=== PATIENT | male | born 1965 | race Caucasian/White ===

== ENCOUNTER 2019-12-06 01:16 | Outpatient (CLI) | payer OTHER, BC, SELFPAY ==
[2019-12-06 19:05] LABS: SARS-CoV-2 RNA PCR Negative
== END 2019-12-06 01:17 | disposition home or self-care (01) ==
LOC: ANHCOVIDDT 01:16
PROVIDERS: Visit Provider Internal Medicine Gastroenterology
DX: Z01.812 Encounter for preprocedural laboratory examination (principal); Z20.828 Contact with and (suspected) exposure to other viral communicable diseases
CPT/HCPCS: 87635; C9803; U0003

== ENCOUNTER 2019-12-08 01:00 | Day surgery (SDC) | payer OTHER, BC, SELFPAY ==
[2019-11-30 15:52] VITALS: BMI 50.0
--- NOTE | 2019-12-07 08:50 | WPDANESEPPF ---
Anes - Initial Pre Proc Eval Procedure: Operation Date: 12/08/19 08:30 Proposed Procedures p Screening Colonoscopy - Marcio Mcgovern MD Date/Time: 12/07/19 08:50 Surgeon: Marcio Mcgovern MD Pre Op Diagnosis: neoplasm screening, hx colon polyps Patient Data Age: 54 Gender: M Height: 1.85 m Weight: 172 kg Allergies Allergy/AdvReac Type Severity Reaction Status Date / Time bacitracin Allergy Intermediate Rash Verified 12/08/19 07:59 gramicidin D Allergy Intermediate Rash Verified 12/08/19 07:59 polymyxin B Allergy Intermediate Rash Verified 12/08/19 07:59 BACITRACIN ZINC Allergy Intermediate Rash Uncoded 12/08/19 07:59 NEOMYCIN SULFATE Allergy Intermediate Rash Uncoded 12/08/19 07:59 POLYMYXIN B SULFATE Allergy Intermediate Rash Uncoded 12/08/19 07:59 Home Medications Medication Instructions Recorded Confirmed Type hydrochlorothiazide 25 mg tablet 25 mg PO DAILY #90 tablet 01/31/19 11/30/19 Rx levothyroxine 88 mcg tablet 88 mcg PO DAILY #90 tablet 01/31/19 11/30/19 Rx lisinopril 40 mg tablet 40 mg PO DAILY #90 tablet 01/31/19 11/30/19 Rx Patient hx anesthesia problems: none Family hx anesthesia problems: none PMFSH Past Medical History Medical History (Updated 12/07/19 @ 08:51 by Wilder Quinones DO) Hypertension Hypothyroidism BHAVESH (obstructive sleep apnea) Family History Family History (Updated 08/18/14 @ 11:47 by DOCTOR UNKNOWN) Other Family history of coronary artery disease Family history of thyroid disease Malignant neoplasm of prostate Social History Social History Smoking status: Never smoker Second hand tobacco smoke exposure: No Alcohol intake: current Drinks per week: 3 Alcohol use details: MIXED DRINKS Substance use: never Substance use type: does not use Living arrangements: with family Spiritual care concerns: No Anes - Eval Final PreProcedure Day of Procedure 12/07/19 08:50 Patient weight: super morbidly obese Heart: regular rate and rhythm Lungs: clear to auscultation and normal air movement Airway: Mallampati scale class II Neurological: alert and oriented Last oral intake: >/= 8 hours ASA classification: III Emergent: no Anesthetic plan: proceed Anesthesia type and monitoring: general GIVS and standard monitoring Informed Consent: The patient's anesthetic plan and its attendant risks and benefits were discussed with the patient/family/POA. Questions were solicited and answers provided to the satisfaction of the patient/family/POA.
[2019-12-08 08:00] VITALS: BP 128/70; PULSE 63; RESP 20; TEMP 36.7; O2SAT 97
[2019-12-08] MEDS: LACTATED RINGERS 1,000 ML 150 ML IV CONT (08:18)
--- NOTE | 2019-12-08 08:35 | WPDGICN ---
Assessment and Plan Assessment and plan (1) History of colon polyps: Code(s): Z86.010 - Personal history of colonic polyps Status: Acute Assessment and Plan: Patient has a history of adenomatous colon polyp removed from the colon 2014. Plan for surveillance colonoscopy now and in the future. GI Consult Note Consult date/time: 12/08/19 08:35 HPI: Marty Harry is a 54 year old male Presents for colonoscopy. Patient has a history of adenomatous colon polyp removed from the colon 2014. Patient's current weight appetite bowel movements are normal. He denies abdominal pain. He has had no blood in his bowel habits. Family history noncontributory. Review of Systems Review of Systems: All systems reviewed & are unremarkable except as noted in HPI and below PMFSH Past Medical History Medical History (Updated 12/08/19 @ 08:36 by Marcio Mcgovern MD) Hypertension Hypothyroidism BHAVESH (obstructive sleep apnea) Family History Family History (Updated 08/18/14 @ 11:47 by DOCTOR UNKNOWN) Other Family history of coronary artery disease Family history of thyroid disease Malignant neoplasm of prostate Social History Social History Smoking status: Never smoker Second hand tobacco smoke exposure: No Alcohol intake: current Drinks per week: 3 Alcohol use details: MIXED DRINKS Substance use: never Substance use type: does not use Living arrangements: with family Spiritual care concerns: No Meds Home Medications and Allergies Home Medications Medication Instructions Recorded Confirmed Type hydrochlorothiazide 25 mg tablet 25 mg PO DAILY #90 tablet 01/31/19 12/08/19 Rx levothyroxine 88 mcg tablet 88 mcg PO DAILY #90 tablet 01/31/19 12/08/19 Rx lisinopril 40 mg tablet 40 mg PO DAILY #90 tablet 01/31/19 12/08/19 Rx Allergies Allergy/AdvReac Type Severity Reaction Status Date / Time bacitracin Allergy Intermediate Rash Verified 12/08/19 07:59 gramicidin D Allergy Intermediate Rash Verified 12/08/19 07:59 polymyxin B Allergy Intermediate Rash Verified 12/08/19 07:59 BACITRACIN ZINC Allergy Intermediate Rash Uncoded 12/08/19 07:59 NEOMYCIN SULFATE Allergy Intermediate Rash Uncoded 12/08/19 07:59 POLYMYXIN B SULFATE Allergy Intermediate Rash Uncoded 12/08/19 07:59 Vital Signs Vital Signs - 24 hr 12/08/19 08:00 Temperature 98.0 F Pulse Rate 63 Respiratory Rate 20 Blood Pressure 128/70 Pulse Oximetry 97 Exam Narrative: Exam Narrative: Physical exam reveals patient to be alert. Vital signs stable. HEENT exam unremarkable. Lungs are clear to auscultation and percussion. Heart is without murmur or extra sounds. Abdominal exam bowel sounds are present soft nontender with no organomegaly. Digital external rectal exam normal.
[2019-12-08 09:05] VITALS: BP 109/50; PULSE 61; RESP 19; O2SAT 95
[2019-12-08 09:15] VITALS: BP 104/53; PULSE 58; RESP 20; O2SAT 96
[2019-12-08 09:25] VITALS: BP 100/52; PULSE 57; RESP 19; O2SAT 98
== END 2019-12-08 09:41 | disposition home or self-care (01) ==
PROVIDERS: Visit Provider Internal Medicine Gastroenterology
PROC: 0DJD8ZZ Inspection of Lower Intestinal Tract, Via Natural or Artificial Opening Endoscopic (ICD-10-PCS; CPT 45378; principal; 2019-12-08 08:30)
DX: Z12.11 Encounter for screening for malignant neoplasm of colon (principal); K63.5 Polyp of colon; K57.30 Diverticulosis of large intestine without perforation or abscess without bleeding; I10 Essential (primary) hypertension; E03.9 Hypothyroidism, unspecified; G47.33 Obstructive sleep apnea (adult) (pediatric); E66.01 Morbid (severe) obesity due to excess calories; Z68.43 Body mass index [BMI] 50.0-59.9, adult
CPT/HCPCS: 45385; 88305; J2704; J7120